=== PATIENT | female | born 1970 ===

== ENCOUNTER 2017-06-11 20:57 | Emergency (ER) | payer OTHER ==
[2017-06-11 20:58] VITALS: BMI 30.9
[2017-06-11 21:14] VITALS: BP 146/89; PULSE 90; TEMP 100.4; O2SAT 97
--- NOTE | 2017-06-11 21:38 | C.PDOC ---
History Of Present Illness 47yo female, presents to ED with complaints of cough, sore throat and hoarseness for the past 2 days. She also reports subjective fever, chills, bodyaches and nasal congestion as well. She denies chest pain, SOB, recent travel or sick contact Time Seen by Provider: 06/11/17 21:16 Chief Complaint (Nursing): ENT Problem History Per: Patient History/Exam Limitations: no limitations Onset/Duration Of Symptoms: Days Current Symptoms Are (Timing): Still Present Location Of Pain: Throat Associated Symptoms: Fever, Chills, Sore Throat, Cough Past Medical History Reviewed: Historical Data, Nursing Documentation, Vital Signs Vital Signs: Last Vital Signs Temp 100.4 F H 06/11/17 21:10 Pulse 90 06/11/17 21:10 Resp 16 06/11/17 21:10 BP 146/89 06/11/17 21:10 Pulse Ox 97 06/11/17 21:38 - Medical History PMH: Schizophrenia Denies: Diabetes, Hepatitis, HIV, HTN, Chronic Kidney Disease, Seizures, Sexually Transmitted Disease Surgical History: No Surg Hx - [facility] Procedures GROUP PSYCHOTHERAPY (10/06/16) INDIVIDUAL PSYCHOTHERAPY, BEHAVIORAL (10/06/16) Family History: States: Unknown Family Hx - Social History Hx Alcohol Use: No Hx Substance Use: No - Immunization History Hx Tetanus Toxoid Vaccination: No Hx Influenza Vaccination: No Hx Pneumococcal Vaccination: No Review Of Systems Constitutional: Positive for: Fever, Chills ENT: Positive for: Throat Pain Respiratory: Positive for: Cough Physical Exam - Physical Exam Appears: Non-toxic, No Acute Distress Skin: Normal Color, Warm Eye(s): bilateral: Normal Inspection Nose: Normal, No Discharge Oral Mucosa: Moist Throat: Normal, No Erythema, No Exudate Neck: Supple Cardiovascular: Rhythm Regular Respiratory: Normal Breath Sounds, No Rhonchi, No Wheezing Neurological/Psych: Oriented x3 ED Course And Treatment O2 Sat by Pulse Oximetry: 97 (RA) Pulse Ox Interpretation: Normal Medical Decision Making Medical Decision Making: Plan: -- Patient requesting Rapid strep, testing ordered -- Motrin PO Rapid strep is negative. Pt is resting comfortably in NAD, VSS. Pt will be d/c home and advised follow up with PMD. Plan and return precautions discussed with patient and pt understands and agrees with plan Disposition - Disposition Referrals: Vidhya King APN [Advanced Practice Nurse] - Disposition: HOME/ ROUTINE Disposition Time: 22:36 Condition: STABLE Additional Instructions: Please follow up with PMD or in clinic Take meds as directed Increase PO fluids Bed rest Return to ER if worse Prescriptions: Benzonatate [Tessalon Perles] 100 mg PO TID #20 sgl Cetirizine HCl [Zyrtec] 10 mg PO DAILY #20 capsule Ibuprofen [Motrin] 600 mg PO Q6H #20 tab Instructions: Upper Respiratory Infection (ED) Forms: [facility] (Mongolian) - Clinical Impression Clinical Impression: Upper respiratory infection
[2017-06-11 23:07] VITALS: RESP 20
== END 2017-06-11 23:06 | disposition home or self-care (01) ==
LOC: C.ER 20:57
DX: J06.9 Acute upper respiratory infection, unspecified (principal)

== ENCOUNTER 2017-06-15 08:34 | Inpatient (IN) | payer MEDICAID, OTHER ==
[2017-06-15 08:35] VITALS: BMI 30.9
[2017-06-15 09:33] LABS: BASO % 0.2 % (0.0-2.0); EOS # 0.2 K/uL (0.0-0.7); HEMATOCRIT 36.8 % (34.0-47.0); LYMPH # 1.8 K/uL (1.0-4.3); LYMPH % 16.3 % (20.0-40.0); MEAN CELL VOLUME 74.2 fL (81.0-99.0); MEAN CORPUSCULAR HGB CONC 33.7 g/dL (33.0-37.0); MEAN PLATELET VOLUME 7.6 fL (7.2-11.7); MONO % 9.1 % (0.0-10.0); RED CELL DISTRIBUTION WIDTH 15.6 % (11.5-14.5); WHITE BLOOD COUNT 10.9 K/uL (4.8-10.8)
[2017-06-15 09:46] LABS: ALB/GLOB RATIO 1.2 (1.0-2.1); ALCOHOL SERUM < 10 mg/dl (0-10); ALKALINE PHOSPHATASE 100 U/L (38-126); ALT/SGPT 53 U/L (9-52); AST/SGOT 27 U/L (14-36); BILIRUBIN,TOTAL 0.5 mg/dL (0.2-1.3); BLOOD UREA NITROGEN 6 mg/dL (7-17); CALCIUM 8.4 mg/dl (8.6-10.4); CARBON DIOXIDE 28 mmol/L (22-30); CHLORIDE 102 mmol/L (98-107); GFR AFRICAN-AMERICAN > 60; GLUCOSE,RANDOM 109 mg/dL (65-105); POTASSIUM 3.5 mmol/L (3.6-5.2); SODIUM 138 mmol/L (132-148); TOTAL PROTEIN 7.4 g/dL (6.3-8.3)
[2017-06-15 09:48] LABS: RBC URINE < 1 /hpf (0-3); URINE BILIRUBIN NEGATIVE (NEGATIVE); URINE BLOOD NEGATIVE (NEGATIVE); URINE COLOR Yellow (YELLOW); URINE GLUCOSE (UA) NORMAL (Normal); URINE KETONE NEGATIVE (NEGATIVE); URINE LEUKOCYTE ESTERASE NEG Leu/uL (Negative); URINE PROTEIN NEGATIVE (NEGATIVE); URINE UROBILINOGEN NORMAL mg/dL (0.2-1.0); WBC URINE < 1 /hpf (0-5)
--- NOTE | 2017-06-15 10:19 | C.PDOC ---
History Of Present Illness 47yo female with history of schizophrenia, presents to ED for evaluation stating she has been possessed with demons and spirits. Patient is requesting help. She denies any suicidal or homicidal ideation. She has no physical complaints. Time Seen by Provider: 06/15/17 08:56 Chief Complaint (Nursing): Psychiatric Evaluation History Per: Patient History/Exam Limitations: no limitations Current Symptoms Are (Timing): Still Present Associated Symptoms: denies: Suicidal Thoughts, Suicidal Plan Past Medical History Reviewed: Historical Data, Nursing Documentation, Vital Signs Vital Signs: Last Vital Signs Temp 98.7 F 06/15/17 13:46 Pulse 103 H 06/15/17 15:53 Resp 20 06/15/17 13:46 BP 122/84 06/15/17 15:53 Pulse Ox 97 06/15/17 11:18 - Medical History PMH: Schizophrenia Denies: Diabetes, Hepatitis, HIV, HTN, Chronic Kidney Disease, Seizures, Sexually Transmitted Disease - [facility] Procedures GROUP PSYCHOTHERAPY (10/06/16) INDIVIDUAL PSYCHOTHERAPY, BEHAVIORAL (10/06/16) Family History: States: Unknown Family Hx - Social History Hx Alcohol Use: No Hx Substance Use: No - Immunization History Hx Tetanus Toxoid Vaccination: No Hx Influenza Vaccination: No Hx Pneumococcal Vaccination: No Review Of Systems Except As Marked, All Systems Reviewed And Found Negative. Psych: Positive for: Psychosis. Negative for: Suicidal ideation Physical Exam - Physical Exam Appears: Other (anxious appearing) Skin: Normal Color Head: Atraumatic, Normacephalic Eye(s): bilateral: Normal Inspection Neck: Supple Cardiovascular: Rhythm Regular Respiratory: Normal Breath Sounds Gastrointestinal/Abdominal: Soft, No Tenderness ED Course And Treatment - Laboratory Results Result Diagrams: 06/15/17 09:28 06/15/17 09:28 O2 Sat by Pulse Oximetry: 97 (RA) Pulse Ox Interpretation: Normal Medical Decision Making Medical Decision Making: Plan: -- Labs -- 1:1 observation Time: 1009 Patient to be admitted under Dr. Rabago for schizophrenia. Disposition - Disposition Disposition: HOSPITALIZED Disposition Time: 10:00 Condition: STABLE - Clinical Impression Clinical Impression: Schizophrenia - Scribe Statement The provider has reviewed the documentation as recorded by the Rey Bernard Provider Attestation: All medical record entries made by the Maribethibsumaya were at my direction and personally dictated by me. I have reviewed the chart and agree that the record accurately reflects my personal performance of the history, physical exam, medical decision making, and the department course for this patient. I have also personally directed, reviewed, and agree with the discharge instructions and disposition.
--- NOTE | 2017-06-15 12:33 | PCM.PSYCH ---
Initial Psychiatric Evaluation - Initial Psychiatric Evaluation Type of Admission: Voluntary Legal Status: Capacity Chief Complaint (in patient's own words): "There are spirits in my head.' History of Present Illness and Precipitating Events: Pt is a 47 year old, HF who is currently living alone, presented to the ED due to bizarre thoughts. Pt remained disorganized and internally preoccupied throughout the evaluation. She remained delusional, paranoid and psychotic. Pt reported in the ED that, ' since the summer, demons have been inside her body. Pt reported that they move around in her body and have been causing discomfort. Pt reported that the demons cause pressure in her head and she feels like they are choking her. Pt reported that she waited so long to seek help because, "I know that sometimes spirits can come into the body and I was waiting for them to leave." Pt stated that she finally brought herself to the ER today because the demons were making it hard for her to breathe. Pt complained of headaches and backaches, saying she needs CT scan as the spirits in her head are bothering her. She remained paranoid and delusional and continued to have loose associations. She reports Auditory hallucinations, mumbling sounds and VH seeing demons. She also reports depressed mood, poor sleep and poor appetite. She appeared disheveled and unkempt. She reports locke in her all over back but couldnt give any reason of the pain. However she denies any SI/HI. PMH: None reported Current Medications: Active Medications Generic Name Dose Route Start Last Admin Trade Name Freq PRN Reason Stop Dose Admin Ibuprofen 400 mg 06/15/17 12:04 Motrin Tab PO Q8 PRN Pain, moderate (4-7) Past Psychiatric History - Past Psychiatric History Previous Treatment History: Inpatient Pertinent Medical Hx (Current Medical&Sleep Prob, Allergies): Allergies Allergy/AdvReac Type Severity Reaction Status Date / Time No Known Allergies Allergy Verified 06/15/17 08:50 Benzonatate [Tessalon Perles] 100 mg PO TID #20 sgl 06/11/17 Cetirizine HCl [Zyrtec] 10 mg PO DAILY #20 capsule 06/11/17 Ibuprofen [Motrin] 600 mg PO Q6H #20 tab 06/11/17 Review of Systems - Review of Systems All systems: reviewed and no additional remarkable complaints except - Psychiatric Psychiatric: Anxiety, Auditory Hallucinations, Irritability, Mood Swings, Paranoia Mental Status Examination - Personal Presentation Personal Presentation: Looks older than stated age - Affect Affect: Blunted - Reliability in Providing Information Reliability in Providing Information: Poor, due to alteration in thoughts, Poor , due to altered mood - Speech Speech: Disorganized - Mood Mood: Anxious - Formal Thought Process Formal Thought Process: Hallucinations, Delusions, Paranoia, Loosening of associations - Hallucinations/Delusions Hallucinations: Auditory Delusions: Persecution - Obsessions/Compulsions Compulsions: No - Cognitive Functions Orientation: Person, Place, Situation, Time Sensorium: Alert Attention/Concentration: Attentive Abstract Thinking: [place] Estimate of Intelligence: Below average Judgement: Imparied, as evidence by: Poor judgement, Imparied, as evidence by: Lack of insight into illness - Risk Risk: Diminished functioning - Limitations Limitations: Living alone DSM 5 DX - DSM 5 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
--- NOTE | 2017-06-15 19:11 | PCM.BM ---
<Lilliana Jeff - Last Filed: 06/15/17 19:10> Treatment Plan Problems - Problems identified on initial assessmt Delusions Date Initiated: 06/15/17 Time Initiated: 15:00 Assessment reference: NA Status: Active Treatment assets and liabiliti Patient Assests: physically healthy, negotiates basic needs, good past tx response - Milieu Protocol Maintain good personal hygiene: daily Encourage regular showers, daily Remind patient to perform daily oral care Maintain personal safety: every shift Educate patient to report safety concerns to staff, every shift Monitor environment for contraband/sharps Medication safety: Monitor for expected outcome, potential side effects: every shift, Assess barriers to learning: every shift, Assess readiness for medication education: every shift <Ines Taylor - Last Filed: 06/17/17 11:04> Family Contact Family involvement: Famliy/SO not involved - Goals for Treatment Patient goals for treatment: "I want to go home." Discharge/Continuing Care - Education Needs Education Needs: Patient Medication, Patient Coping Skills - Discharge Discharge Criteria: Tolerates medication w/o severe side effects, Reduction of target symptoms Discharge to:: Home - Treatment Team Participation Discussed with Family/SO: No Was Patient/Family/SO present at Treatment Team Meeting: Yes <Isaiah Rabago - Last Filed: 06/17/17 11:05> - Diagnosis (1) Schizophrenia Status: Acute Interventions: 06/17/17 11:05 * Assess/adjust medications daily and /or as needed * See patient on an individual basis 7x/week to assess status of hallucinations * Discuss risks, benefits, side effects and alternatives of medications *
--- NOTE | 2017-06-16 14:00 | PCM.PYCHPN ---
Psychiatric Progress Note - Psychiatric Progress Note Patient seen today, length of contact: 15 min Patient Chief Complaint: "There are spirits in my head.' Problems Identified/Issues Discussed: Patient seen and evaluated, chart reviewed and discussed with the nurse. Patient remained disorganized and internally preoccupied. Patient is still complaining of headache and back pain 'due to spirits' and requesting MRI/CT scan of the head to rule out. Patient still appears paranoid and delusional. She reports depressed mood and she remained isolated, confined and withdrawn. She is compliant with medications and denies any side effects. Symptoms are improving but need more time to stabilize. Support and psychoeducation given. Medication Change: Yes (Increase Risperdal, start Zoloft) Medical Record Reviewed: Yes Mental Status Examination - Cognitive Function Orientation: Person, Place, Situation, Time Memory: Intact Attention: Poor Concentration: Poor Association: Loose Fund of Knowledge: Poor - Mood Mood: Anxious - Affect Affect: Blunted - Speech Speech: Soft - Formal Thought Process Formal Thought Process: Hallucinations, Delusions, Paranoia, Loosening of associations - Suicidal Ideation Suicidal Ideation: No - Homicidal Ideation Homicidal Ideation: No Goal/Treatment Plan - Goal/Treatment Plan Need for Continued Stay: Severe depression anxiety, Severe functional impairment Progress Toward Problem(s) and Goals/Treatment Plan: Schizophrenia paranoid type continuous CBT Psychoeducation Supportive therapy, group therapy, individual therapy Risperdal 2 mg PO BID Cogentin 1 mg po BID Start Zoloft 50 mg PO Daily Trazodone 50 mg by mouth daily at bedtime - Smoking Cessation Smoking Cessation Initiated: No
--- NOTE | 2017-06-17 11:02 | PCM.PYCHPN ---
Psychiatric Progress Note - Psychiatric Progress Note Patient seen today, length of contact: 15 min Patient Chief Complaint: "There are spirits in my head.' Problems Identified/Issues Discussed: Patient seen and evaluated, chart reviewed and discussed with the nurse. As per the staff, pt is still complaining of headache and back pain 'due to spirits' and requesting MRI of the head to rule out other abnormalities. She remained disheveled and unkempt and remained disorganized and internally preoccupied. Patient still appears paranoid and delusional. She reports depressed mood and she remained isolated, confined and withdrawn. She is compliant with medications and denies any side effects. Symptoms are improving but need more time to stabilize. Support and psychoeducation given. Medication Change: Yes (Increase Risperdal, start Zoloft) Medical Record Reviewed: Yes Mental Status Examination - Cognitive Function Orientation: Person, Place, Situation, Time Memory: Intact Attention: Poor Concentration: Poor Association: Loose Fund of Knowledge: Poor - Mood Mood: Anxious - Affect Affect: Blunted - Speech Speech: Soft - Formal Thought Process Formal Thought Process: Hallucinations, Delusions, Paranoia, Loosening of associations - Suicidal Ideation Suicidal Ideation: No - Homicidal Ideation Homicidal Ideation: No Goal/Treatment Plan - Goal/Treatment Plan Need for Continued Stay: Severe depression anxiety, Severe functional impairment Progress Toward Problem(s) and Goals/Treatment Plan: Schizophrenia paranoid type continuous CBT Psychoeducation Supportive therapy, group therapy, individual therapy Risperdal 2 mg PO BID Cogentin 1 mg po BID Zoloft 50 mg PO Daily Trazodone 50 mg by mouth daily at bedtime - Smoking Cessation Smoking Cessation Initiated: No
--- NOTE | 2017-06-18 12:05 | PCM.PYCHPN ---
Psychiatric Progress Note - Psychiatric Progress Note Patient seen today, length of contact: 15 min Patient Chief Complaint: "There are spirits in my head.' Problems Identified/Issues Discussed: Patient seen and evaluated, chart reviewed and discussed with the nurse. As per the staff, pt remained delusional, paranoid and internally preoccupied. She remained disorganized and she is still complaining of headache and back pain ' due to spirits' and requesting MRI/CT scan of the head to rule out. She reports depressed mood and she remained isolated, confined and withdrawn. She is compliant with medications and denies any side effects. Symptoms are improving but need more time to stabilize. Support and psychoeducation given. Medication Change: Yes (Increase Risperdal, start Zoloft) Medical Record Reviewed: Yes Mental Status Examination - Cognitive Function Orientation: Person, Place, Situation, Time Memory: Intact Attention: Poor Concentration: Poor Association: Loose Fund of Knowledge: Poor - Mood Mood: Anxious - Affect Affect: Blunted - Speech Speech: Soft - Formal Thought Process Formal Thought Process: Hallucinations, Delusions, Paranoia, Loosening of associations - Suicidal Ideation Suicidal Ideation: No - Homicidal Ideation Homicidal Ideation: No Goal/Treatment Plan - Goal/Treatment Plan Need for Continued Stay: Severe depression anxiety, Severe functional impairment Progress Toward Problem(s) and Goals/Treatment Plan: Schizophrenia paranoid type continuous CBT Psychoeducation Supportive therapy, group therapy, individual therapy Risperdal 2 mg PO BID Cogentin 1 mg po BID Start Zoloft 50 mg PO Daily Trazodone 50 mg by mouth daily at bedtime - Smoking Cessation Smoking Cessation Initiated: No
--- NOTE | 2017-06-19 10:33 | PCM.PYCHPN ---
Psychiatric Progress Note - Psychiatric Progress Note Patient seen today, length of contact: 15 min Patient Chief Complaint: "There are spirits in my head.' Problems Identified/Issues Discussed: Patient seen and evaluated, chart reviewed and discussed with the nurse. Patient appears more organized than before but remained internally preoccupied. She appears less disheveled and more kempt than before. Pt is still complaining of headache and back pain 'due to spirits' but she is not requesting MRI of the head. Patient still appears paranoid and delusional. She reports depressed mood and she remained isolated, confined and withdrawn. She is compliant with medications and denies any side effects. Symptoms are improving but need more time to stabilize. Support and psychoeducation given. Medication Change: Yes (Increase Risperdal, start Zoloft) Medical Record Reviewed: Yes Mental Status Examination - Cognitive Function Orientation: Person, Place, Situation, Time Memory: Intact Attention: WNL Concentration: Poor Association: Loose Fund of Knowledge: Poor - Mood Mood: Anxious - Affect Affect: Blunted - Speech Speech: Soft - Formal Thought Process Formal Thought Process: Hallucinations, Delusions, Paranoia, Loosening of associations - Suicidal Ideation Suicidal Ideation: No - Homicidal Ideation Homicidal Ideation: No Goal/Treatment Plan - Goal/Treatment Plan Need for Continued Stay: Severe depression anxiety, Severe functional impairment Progress Toward Problem(s) and Goals/Treatment Plan: Schizophrenia paranoid type continuous CBT Psychoeducation Supportive therapy, group therapy, individual therapy Risperdal 2 mg PO BID Cogentin 1 mg po BID Zoloft 50 mg PO Daily Trazodone 50 mg by mouth daily at bedtime - Smoking Cessation Smoking Cessation Initiated: No
[2017-06-20] MEDS ORDERED: Bisacodyl 5mg EC Tab PO PRN (10:52)
[2017-06-20] MEDS ORDERED: Magnesium Hydroxide Susp 30 ml UD PO ONE (10:53)
--- NOTE | 2017-06-20 15:32 | PCM.PYCHPN ---
Psychiatric Progress Note - Psychiatric Progress Note Patient seen today, length of contact: 15 min Patient Chief Complaint: "I have constipation for the last 2 days" Problems Identified/Issues Discussed: Patient was seen. Chart was reviewed important content noted. Nurse input received. Patient patient stated that she has constipation for the last 2 days. Patient stated that the demons are still following her and she needed more treatment. Patient slept well and is eating well. Patient denies any depressive symptoms. Denies suicidal or homicidal ideations. Patient does not report hallucinations. Patient has remained in good clinical and behavioral control. Symptoms are improving, but needs more time to stabilize. Patient is finding medications beneficial and would like to continue with treatment plan. Patient appreciated that treatment team is trying to help. DSM 5 Symptoms Update: Schizophrenia paranoid type continuous Medication Change: Yes (Increase Risperdal at bedtime) Medical Record Reviewed: Yes Mental Status Examination - Cognitive Function Orientation: Person, Place, Situation, Time Memory: Intact Attention: WNL Concentration: Poor Association: Loose Fund of Knowledge: Poor Decription of patient's judgement and insights: fair/good - Mood Mood: Anxious - Affect Affect: Blunted - Speech Speech: Appropriate, Soft - Formal Thought Process Formal Thought Process: Hallucinations, Delusions, Paranoia, Loosening of associations Psychotic Thoughts and Behaviors: Superficially cooperative - Suicidal Ideation Suicidal Ideation: No - Homicidal Ideation Homicidal Ideation: No Goal/Treatment Plan - Goal/Treatment Plan Need for Continued Stay: Severe depression anxiety, Discharge may exacerbated symptoms, Severe functional impairment Progress Toward Problem(s) and Goals/Treatment Plan: Continue current treatment as per primary team, continue Risperdal 2 mg orally daily in the morning and 3 mg at bedtime for psychosis continue Cogentin 1 mg ordered for EPS symptoms Zoloft 50 mg PO Daily Trazodone 50 mg by mouth daily at bedtime CBT Psychoeducation Supportive therapy, group therapy, individual therapy Estimated Date of D/C: 06/23/17 - Smoking Cessation Smoking Cessation Initiated: Yes
--- NOTE | 2017-06-21 12:27 | PCM.PYCHPN ---
Psychiatric Progress Note - Psychiatric Progress Note Patient seen today, length of contact: 15 min Problems Identified/Issues Discussed: The pt is seen, chart reviewed, case discussed with staff. Support given. She is still very delusional and not ready to leave No new symptoms reported, improving slowly and needs more time No SEs from medications, risks discussed. Medication Change: No (Increase Risperdal at bedtime) Medical Record Reviewed: Yes Mental Status Examination - Cognitive Function Orientation: Person, Place, Situation, Time Memory: Intact Attention: WNL Concentration: Poor Association: Loose Fund of Knowledge: Poor - Mood Mood: Anxious - Affect Affect: Blunted - Speech Speech: Appropriate, Soft - Formal Thought Process Formal Thought Process: Hallucinations, Delusions, Paranoia, Loosening of associations - Suicidal Ideation Suicidal Ideation: No - Homicidal Ideation Homicidal Ideation: No Goal/Treatment Plan - Goal/Treatment Plan Need for Continued Stay: Severe depression anxiety, Discharge may exacerbated symptoms, Severe functional impairment Progress Toward Problem(s) and Goals/Treatment Plan: Continue medications Support and psychoeducation daily Attend groups and activities daily After care planning by IRENE Estimated Date of D/C: 06/23/17
--- NOTE | 2017-06-22 18:35 | PCM.PYCHPN ---
Psychiatric Progress Note - Psychiatric Progress Note Patient seen today, length of contact: 15 min Patient Chief Complaint: "I'm feeling better" Problems Identified/Issues Discussed: Patient was seen. Chart was reviewed important content noted. Nurse input received. Patient reported improvement in her psychosis. Patient slept well and is eating well. Patient denies any depressive symptoms. Denies suicidal or homicidal ideations. Patient does not report hallucinations. Patient has remained in good clinical and behavioral control. Symptoms are improving, but needs more time to stabilize. Patient is finding medications beneficial and would like to continue with treatment plan. Patient appreciated that treatment team is trying to help. DSM 5 Symptoms Update: Schizophrenia Medication Change: No (Increase Risperdal at bedtime) Medical Record Reviewed: Yes Mental Status Examination - Cognitive Function Orientation: Person, Place, Situation, Time Memory: Intact Attention: WNL Concentration: WNL Association: WNL Fund of Knowledge: WN Decription of patient's judgement and insights: good/good - Mood Mood: Anxious - Affect Affect: Constricted - Speech Speech: Appropriate, Soft - Formal Thought Process Formal Thought Process: No Impairment Psychotic Thoughts and Behaviors: denied - Suicidal Ideation Suicidal Ideation: No Plan: denied - Homicidal Ideation Homicidal Ideation: No Plan: denied Goal/Treatment Plan - Goal/Treatment Plan Need for Continued Stay: Severe depression anxiety, Discharge may exacerbated symptoms, Severe functional impairment Progress Toward Problem(s) and Goals/Treatment Plan: Continue current treatment as per primary team, continue Risperdal 2 mg orally daily in the morning and 3 mg at bedtime for psychosis continue Cogentin 1 mg ordered for EPS symptoms Zoloft 50 mg PO Daily Trazodone 50 mg by mouth daily at bedtime CBT Psychoeducation Supportive therapy, group therapy, individual therapy Estimated Date of D/C: 06/23/17 - Smoking Cessation Smoking Cessation Initiated: Yes
[2017-06-23 05:59] VITALS: BP 119/75; PULSE 68; RESP 20; TEMP 97.4; O2SAT 96
--- NOTE | 2017-06-23 11:16 | PCM.PYCHDC ---
Mental Status Examination - Mental Status Examination Orientation: Person, Place, Situation, Time Memory: Intact Mood: Neutral Affect: Constricted Speech: Soft Attention: WNL Concentration: WNL Association: WNL Fund of Knowledge: WNL Formal Thought Process: No Impairment Description of patient's judgement and insight: good, fair Psychotic Thoughts and Behaviors: denies any AVH Suicidal Ideation: No Current Homicidal Ideation?: No Discharge Summary - Discharge Note Consultations:: List each consultation separately and include: 1. Reason for request. 2. Findings. 3. Follow-up Summary of Hospital Course include:: 1. Description of specific treatment plan utilized for patients during their course of treatmen. 2. Summarize the time- course for resolution of acute symptoms and/or regressed behaviors. 3. Describe issues identified and worked on during hospitalization. 4. Describe medication utilized. 5. Describe medical problems identified and treated. 6. Reassessment of suicide risk Summary of Hospital Course: Pt is a 47 year old, HF who is currently living alone, presented to the ED due to bizarre thoughts. Pt remained disorganized and internally preoccupied throughout the evaluation. She remained delusional, paranoid and psychotic. Pt reported in the ED that, ' since the summer, demons have been inside her body. Pt reported that they move around in her body and have been causing discomfort. Pt reported that the demons cause pressure in her head and she feels like they are choking her. Pt reported that she waited so long to seek help because, "I know that sometimes spirits can come into the body and I was waiting for them to leave." Pt stated that she finally brought herself to the ER today because the demons were making it hard for her to breathe. Pt complained of headaches and backaches, saying she needs CT scan as the spirits in her head are bothering her. She remained paranoid and delusional and continued to have loose associations. She reports Auditory hallucinations, mumbling sounds and VH seeing demons. She also reports depressed mood, poor sleep and poor appetite. She appeared disheveled and unkempt. She reports locke in her all over back but couldnt give any reason of the pain. However she denies any SI/HI. PMH: None reported - Diagnosis (1) Schizophrenia Current Visit: Yes Status: Acute - Final Diagnosis (DSM 5) Condition upon Discharge: STABLE Disposition: HOME/ ROUTINE Follow-up Treatment Plan: Schizophrenia paranoid type continuous CBT Psychoeducation Supportive therapy, group therapy, individual therapy Risperdal 2 mg PO BID Cogentin 1 mg po BID Start Zoloft 50 mg PO Daily Trazodone 50 mg by mouth daily at bedtime Prescriptions/Medication Reconciliation: Benztropine [Cogentin] 1 mg PO BID PRN #60 tab PRN Reason: Extra Pyramidal Symptoms risperiDONE [RisperDAL Tab] 3 mg PO BID #60 tab Sertraline [Zoloft] 50 mg PO DAILY #30 tab traZODone [Desyrel] 50 mg PO HS #30 tab
== END 2017-06-23 12:25 | disposition home or self-care (01) | DRG 430 ==
LOC: C.ER 08:34 → C.5E 10:08
PROVIDERS: ADMIT Psychiatry & Neurology Psychiatry; ATTEND Psychiatry & Neurology Psychiatry
DX: F20.0 Paranoid schizophrenia (principal); K59.00 Constipation, unspecified